=== PATIENT | male | born 2005 ===

== ENCOUNTER 2024-02-17 06:58 | Emergency (ER) | payer OTHER ==
[~2024-02-17] VITALS: Ht 172.7 cm; Wt 72.6 kg
[2024-02-17] MEDS ORDERED: Droperidol 5 mg/2 ml Vial IV ONE ×2 (07:05→09:00)
[2024-02-17] MEDS ORDERED: ONDA4ODT MM (10:54)
[2024-02-17] MEDS ORDERED: METO10 PO (10:54)
[2024-02-17] MEDS ORDERED: PROM12.5S PR (10:54)
[2024-02-17 11:00] VITALS: BP 123/71
== END 2024-02-17 11:13 | disposition home or self-care (01) ==
LOC: ER 06:58
DX: R11.2 Nausea with vomiting, unspecified (principal); F12.20 Cannabis dependence, uncomplicated
CPT/HCPCS: 96374; 96376; 99284-25; J1790

== ENCOUNTER 2024-04-08 16:40 | Emergency (ER) | payer OTHER ==
[~2024-04-08] VITALS: Ht 172.7 cm; Wt 74.8 kg
[~2024-04-08 16:40] MED LIST: METO10 PO; ONDA4ODT MM; PROM12.5S PR
[2024-04-08 17:15] LABS: BASOPHILS ABSOLUTE AUTO 0.04 K/mm3 (0.00-0.23); BASOPHILS PERCENT AUTO 0 % (0-2); EOSINOPHILS ABSOLUTE AUTO 0.01 K/mm3 (0.00-0.68); EOSINOPHILS PERCENT AUTO 0 % (0-6); Hematocrit 48.3 % (37.0-53.0); Hemoglobin 17.3 g/dL (13.5-17.5); IMMATURE GRAN ABSOLUTE AUTO 0.07 K/mm3 (0.00-0.10); IMMATURE GRAN PERCENT AUTO 1 % (0-1); LYMPHOCYTES ABSOLUTE AUTO 0.84 K/mm3 (0.84-5.20); LYMPHOCYTES PERCENT AUTO 5 % (21-46); MONOCYTES ABSOLUTE AUTO 1.47 K/mm3 (0.16-1.47); MONOCYTES PERCENT AUTO 10 % (4-13); Mean Corpuscular HGB 30.4 pg (26.0-34.0); Mean Corpuscular HGB Conc 35.8 g/dL (31.5-36.5); Mean Corpuscular Volume 85 fL (80-100); Mean Platelet Volume 9.2 fL (9.1-12.4); NEUTROPHILS ABSOLUTE AUTO 13.08 K/mm3 (1.96-9.15); NEUTROPHILS PERCENT AUTO 84 % (41-73); Platelet Count 269 K/mm3 (150-400); RDW Coefficient Variation 12.7 % (11.7-14.2); RDW Standard Deviation 39.2 fL (35.1-46.3); White Blood Cell Count 15.51 K/mm3 (4.00-11.30)
[2024-04-08 17:33] LABS: Albumin, Blood 4.7 g/dL (3.4-5.0); Albumin/Globulin Ratio 1.4 (0.8-1.8); Bilirubin, Total 0.6 mg/dL (0.1-1.0); Bun/Creatinine Ratio 12.1 (12.0-20.0); Calcium, Blood 9.3 mg/dL (8.5-10.1); Creatinine, Blood 1.07 mg/dL (0.60-1.20); Globulin, Blood 3.4 g/dL (2.2-4.0); Potassium, Blood 4.5 mmol/L (3.5-5.5); Total Protein, Blood 8.1 g/dL (6.4-8.2)
[2024-04-08] MEDS ORDERED: Lactated Ringer's 1,000 ML IV ONE (19:40)
[2024-04-08] MEDS ORDERED: LORazepam 2 MG/ML 1ML Injection ONE (20:21)
[2024-04-08] MEDS ORDERED: levETIRAcetam 3,000 MG in NS 100 ML IV ONE ×2 (20:30→20:55)
[2024-04-08] MEDS ORDERED: LORazepam 2 MG/ML 1ML Injection IV ONE (20:30)
[2024-04-08] MEDS ORDERED: Ondansetron HCl 2 MG / ML 2ML Vial IV ONE (21:15)
[2024-04-09 02:00] VITALS: BP 119/52
[2024-04-10 21:19] LABS: LAMOTRIGINE <0.9 ug/mL (3.0-15.0)
== END 2024-04-09 02:17 | disposition home or self-care (01) ==
LOC: ER 16:40
PROVIDERS: Physician Assistant; Student in an Organized Health Care Education/Training Program
DX: G40.409 Other generalized epilepsy and epileptic syndromes, not intractable, without status epilepticus (principal); D72.829 Elevated white blood cell count, unspecified; R63.8 Other symptoms and signs concerning food and fluid intake; Z79.899 Other long term (current) drug therapy
CPT/HCPCS: 70450; 80053; 80175; 85025; 96361; 96365; 96375; 99284-25; J1953; J2060; J2405; J7120